=== PATIENT | female | born 2000 | race Caucasian/White ===

== ENCOUNTER 2019-12-12 19:42 | Emergency (ER) | payer MEDICAID ==
[~2019-12-12] VITALS: Ht 157.5 cm; Wt 68.2 kg
[2019-12-12 19:49] VITALS: Ht 157.5 cm; Wt 68.2 kg
[2019-12-12 20:15] LABS: APPEARANCE CLEAR (CLEAR); BILIRUBIN NEGATIVE (NEGATIVE); COLOR YELLOW (YELLOW); GLUCOSE NEGATIVE (NEGATIVE); KETONE MODERATE mg/dL (NEGATIVE); NITRITE NEGATIVE (NEGATIVE); PROTEIN NEGATIVE (NEGATIVE); UROBILINOGEN NORMAL (NORMAL)
[2019-12-12 20:18] LABS: RED CELLS - URINE 0-5 /hpf (0-5); WHITE CELLS - URINE 0-5 /hpf (NEGATIVE)
[2019-12-12 20:19] LABS: BACTERIA FEW /hpf (NEGATIVE)
[2019-12-12 20:22] LABS: BASOPHILS 0.1 % (0-2); EOSINOPHILS 0 % (0-7); HEMATOCRIT 38.3 % (36.0-48.0); HEMOGLOBIN 12.3 g/dL (12-16); IMMATURE GRANULOCYTES 0.3 % (0-5); LYMPHOCYTES 8.5 % (15-50); MCH 25.7 pg (26.0-34.0); MCHC 32.1 g/dL (31.0-37.0); MCV 80.1 fL (80.0-100.0); MEAN PLATELET VOLUME 10.1 fL (7.4-10.4); MONOCYTES 4.7 % (2-11); NEUTROPHILS 86.4 % (40-80); PLATELET COUNT 402 10x3/uL (130-400); RBC 4.78 10x6/uL (4.00-5.40); RDW 14.8 % (11.5-14.5); WBC 18.7 10x3/uL (4.8-10.8)
[2019-12-12 20:23] LABS: UDS - AMPHET NEGATIVE QUAL (NEGATIVE); UDS - BARB NEGATIVE QUAL (NEGATIVE); UDS - BENZO NEGATIVE QUAL (NEGATIVE); UDS - COCAINE NEGATIVE QUAL (NEGATIVE); UDS - OPIATE NEGATIVE QUAL (NEGATIVE); UDS - PCP NEGATIVE QUAL (NEGATIVE); UDS - THC POSITIVE QUAL (NEGATIVE)
[2019-12-12 20:32] LABS: HCG URINE NEGATIVE (NEGATIVE)
[2019-12-12 20:50] LABS: CALC OSMOLALITY 280 mosm/kg (275-300); CARBON DIOXIDE 24.9 mmol/L (21.0-32.0); CHLORIDE - SERUM 103 mmol/L (98-107); CREATININE - SERUM 0.9 mg/dL (0.6-1.3); GLUCOSE 111 mg/dL (74-106); POTASSIUM - SERUM 3.9 mmol/L (3.5-5.1); SODIUM 141 mmol/L (136-145); UREA NITROGEN 11 mg/dL (7-18); eGFR NON AFRICAN AMERICAN 84 mL/min (90-120)
[2019-12-12 21:05] LABS: ALKALINE PHOSPHATASE 77 U/L (46-116); ALT (SGPT) 40 U/L (10-68); BILIRUBIN - TOTAL 0.33 mg/dL (0.2-1.3); CREATINE KINASE 56 UL (21-215); MAGNESIUM - SERUM 2.2 mg/dL (1.8-2.4); PROTEIN - SERUM 8.5 g/dL (6.4-8.2)
[2019-12-12 21:15] LABS: TROPONIN-I < 0.017 ng/mL (0.000-0.060)
[2019-12-12 22:34] VITALS: BP 126/70
== END 2019-12-12 22:35 | disposition home or self-care (01) ==
LOC: D.ER 19:42
PROVIDERS: Family Medicine
DX: F41.9 Anxiety disorder, unspecified (principal); E86.0 Dehydration

== ENCOUNTER 2019-12-22 09:56 | Emergency (ER) | payer MEDICAID ==
[~2019-12-22] VITALS: Ht 157.5 cm; Wt 68.2 kg
[2019-12-22 09:58] VITALS: Ht 157.5 cm; Wt 68.2 kg
[2019-12-22 10:24] LABS: BASOPHILS 0.3 % (0-2); EOSINOPHILS 0.8 % (0-7); HEMATOCRIT 38.1 % (36.0-48.0); IMMATURE GRANULOCYTES 0.3 % (0-5); MCH 25.3 pg (26.0-34.0); MCHC 31.5 g/dL (31.0-37.0); MCV 80.4 fL (80.0-100.0); MEAN PLATELET VOLUME 9.4 fL (7.4-10.4); MONOCYTES 7.5 % (2-11); NEUTROPHILS 57.1 % (40-80); PLATELET COUNT 366 10x3/uL (130-400); RBC 4.74 10x6/uL (4.00-5.40); RDW 14.9 % (11.5-14.5); WBC 7.4 10x3/uL (4.8-10.8)
[2019-12-22 10:35] LABS: APTT 26.9 SECONDS (22.8-39.4); INR 0.96 (0.85-1.17); PROTIME 12.7 SECONDS (11.6-15.0)
[2019-12-22 10:37] LABS: CALC OSMOLALITY 276 mosm/kg (275-300); CALCIUM 9.4 mg/dL (8.5-10.1); CARBON DIOXIDE 27.8 mmol/L (21.0-32.0); CHLORIDE - SERUM 103 mmol/L (98-107); CREATININE - SERUM 0.9 mg/dL (0.6-1.3); GLUCOSE 101 mg/dL (74-106); POTASSIUM - SERUM 3.5 mmol/L (3.5-5.1); SODIUM 140 mmol/L (136-145); UREA NITROGEN 7 mg/dL (7-18); eGFR NON AFRICAN AMERICAN 84 mL/min (90-120)
[2019-12-22 10:54] LABS: ALBUMIN 3.7 g/dL (3.4-5.0); ALKALINE PHOSPHATASE 71 U/L (46-116); ALT (SGPT) 48 U/L (10-68); BILIRUBIN - TOTAL 0.29 mg/dL (0.2-1.3); CKMB 0.2 U/L (0.0-3.6); CREATINE KINASE 51 UL (21-215); MAGNESIUM - SERUM 2.1 mg/dL (1.8-2.4); PROTEIN - SERUM 8.2 g/dL (6.4-8.2); TROPONIN-I < 0.017 ng/mL (0.000-0.060)
[2019-12-22 11:18] LABS: UDS - AMPHET NEGATIVE QUAL (NEGATIVE); UDS - BARB NEGATIVE QUAL (NEGATIVE); UDS - BENZO NEGATIVE QUAL (NEGATIVE); UDS - COCAINE NEGATIVE QUAL (NEGATIVE); UDS - OPIATE NEGATIVE QUAL (NEGATIVE); UDS - PCP NEGATIVE QUAL (NEGATIVE); UDS - THC NEGATIVE QUAL (NEGATIVE)
[2019-12-22] MEDS ORDERED: CYCLOBENZAPRINE10 MG PO (12:09)
[2019-12-22] MEDS ORDERED: ACETAMINOPHEN500 M1 PO (12:09)
[2019-12-22] MEDS ORDERED: IBUPROFEN800 MG PO (12:09)
[2019-12-22 12:19] VITALS: BP 115/78
== END 2019-12-22 12:20 | disposition home or self-care (01) ==
LOC: D.ER 09:56
PROVIDERS: Family Medicine
DX: M94.0 Chondrocostal junction syndrome [Tietze] (principal); R07.89 Other chest pain

== ENCOUNTER 2020-03-31 12:10 | Emergency (ER) | payer MEDICAID ==
[~2020-03-31] VITALS: Ht 157.5 cm; Wt 56.8 kg
[~2020-03-31 12:10] MED LIST: ACETAMINOPHEN500 M1 PO; BACLOFEN20 M1 PO; CYCLOBENZAPRINE10 MG PO; IBUPROFEN800 MG PO; METHOCARBAMOL750 MG NG; VOLTAREN75 MG PO
[2020-03-31 12:13] VITALS: Ht 157.5 cm; Wt 56.8 kg
[2020-03-31 12:48] LABS: BASOPHILS 0.2 % (0-2); CALC OSMOLALITY 274 mosm/kg (275-300); CALCIUM 8.8 mg/dL (8.5-10.1); CARBON DIOXIDE 25.7 mmol/L (21.0-32.0); CHLORIDE - SERUM 102 mmol/L (98-107); CREATININE - SERUM 0.8 mg/dL (0.6-1.3); EOSINOPHILS 0.8 % (0-7); GLUCOSE 97 mg/dL (74-106); HCG SERUM NEGATIVE (NEGATIVE); HEMATOCRIT 36.6 % (36.0-48.0); HEMOGLOBIN 11.6 g/dL (12-16); IMMATURE GRANULOCYTES 0.2 % (0-5); LYMPHOCYTES 38.3 % (15-50); MCH 25.8 pg (26.0-34.0); MCHC 31.7 g/dL (31.0-37.0); MCV 81.5 fL (80.0-100.0); MEAN PLATELET VOLUME 9.5 fL (7.4-10.4); MONOCYTES 8.1 % (2-11); NEUTROPHILS 52.4 % (40-80); PLATELET COUNT 409 10x3/uL (130-400); POTASSIUM - SERUM 3.8 mmol/L (3.5-5.1); RBC 4.49 10x6/uL (4.00-5.40); RDW 15.5 % (11.5-14.5); SODIUM 138 mmol/L (136-145); UREA NITROGEN 9 mg/dL (7-18); WBC 8.5 10x3/uL (4.8-10.8); eGFR NON AFRICAN AMERICAN > 90 mL/min (90-120)
[2020-03-31 12:50] LABS: BILIRUBIN NEGATIVE (NEGATIVE); GLUCOSE NEGATIVE (NEGATIVE); KETONE NEGATIVE (NEGATIVE); NITRITE NEGATIVE (NEGATIVE); SPECIFIC GRAVITY 1.025 (1.005-1.020); UROBILINOGEN NORMAL (NORMAL)
[2020-03-31 12:52] LABS: BACTERIA MODERATE /hpf (NEGATIVE); WHITE CELLS - URINE 0-5 /hpf (NEGATIVE)
[2020-03-31 12:53] LABS: ALBUMIN 3.7 g/dL (3.4-5.0); ALKALINE PHOSPHATASE 75 U/L (30-120); ALT (SGPT) 21 U/L (10-68); BILIRUBIN - TOTAL 0.22 mg/dL (0.2-1.3); PROTEIN - SERUM 8.3 g/dL (6.4-8.2)
[2020-03-31] MEDS ORDERED: ZOFRAN4 MG PO (14:20)
[2020-03-31] MEDS ORDERED: ULTRAM50 MG PO (14:20)
[2020-03-31] MEDS ORDERED: FLOMAX0.4 MG PO (14:20)
[2020-03-31 14:48] VITALS: BP 125/68
== END 2020-03-31 14:48 | disposition home or self-care (01) ==
LOC: D.ER 12:10
PROVIDERS: Family Medicine
DX: N20.0 Calculus of kidney (principal); R10.9 Unspecified abdominal pain

== ENCOUNTER 2020-05-03 18:36 | Emergency (ER) | payer OTHER, MEDICAID ==
[~2020-05-03] VITALS: Ht 157.5 cm; Wt 65.9 kg
[~2020-05-03 18:36] MED LIST changes: +FLOMAX0.4 MG PO; +ULTRAM50 MG PO; +ZOFRAN4 MG PO
[2020-05-03 18:37] VITALS: Ht 157.5 cm; Wt 65.9 kg
[2020-05-03 20:45] VITALS: BP 116/79
== END 2020-05-03 20:46 | disposition home or self-care (01) ==
LOC: D.ER 18:36
DX: S16.1XXA Strain of muscle, fascia and tendon at neck level, initial encounter (principal); S46.812A Strain of other muscles, fascia and tendons at shoulder and upper arm level, left arm, initial encounter; V89.2XXA Person injured in unspecified motor-vehicle accident, traffic, initial encounter; Y93.9 Activity, unspecified; Y92.9 Unspecified place or not applicable